=== PATIENT | female | born 1990 | race African-American/Black ===

== ENCOUNTER 2022-08-15 01:57 | Emergency (ER) | payer OTHER ==
--- OUTSIDE RECORDS SUMMARY | 2022-08-15 02:09 | XMS REPORT | Continuity of Care Document ---
:1990 Author Organization [facility] t Address [address] [place] [address] [address]. [address] [place] [address] Care Team Providers Name Role Phone Ashleigh EDDY, Neli Cooper Primary Care Physician [phone] AMANDO BOYD Attending Clinician Unavailable JERMAN ANDRADE Attending Clinician Unavailable Problems Condition Condition Condition Status Onset Resolution Last Treating Co mments Source Name Details Category Date Date Treatment Clinician Date Disease Active Met [facility]: [facility] 00 l Allergies, Adverse Reactions, Alerts This patient has no known allergies or adverse reactions. Social History Social Habit Start Date Stop Date Quantity Comments Source Alcohol intake 2021-01-06 2021-01-06 Current drinker [facility] 00:00:00 00:00:00 of [facility] (finding) Tobacco use and 2020-05-07 2020-05-07 Smokeless tobacco [facility]00 non-user Hospital Alcohol Comment 2020-05-07 2020-05-07 [facility] Sex Assigned At [birth year] [facility] Smoking Status Start Date Stop Date Source Never smoked tobacco [facility] Medications Ordered Filled Start Stop Current Ordering Indication Dosage Frequency Signature Comments Components Source Medication Medication Date Date Medication? Clinician (SIG) Name Name No known No No known [facility] medications 4-[address] 00:48: [facility] 50 l Procedures This patient has no known procedures. Plan of Care Planned Activity Planned Date Details Comments Source Future Scheduled 2022-08-15 COVID-[address] [facility] Test 02:09:35 (#1) [code = COVID-19 VACCINE (#1)] Future Scheduled 2022-08-15 Hepatitis C [facility] Test 02:09:35 screening (procedure) [code = 813599026] Future Scheduled 2022-08-15 Screening for [facility] Test 02:09:35 malignant neoplasm of cervix (procedure) [code = 706395153] Future Scheduled 2022-08-15 [facility]ACCINE [facility] 02:09:35 [code = INFLUENZA VACCINE] Future Scheduled 2022-08-15 [facility]IS B [facility] 02:09:35 VACCINES (1 of 3 - 3-dose series) [code = HEPATITIS B VACCINES (1 of 3 - 3-dose series)] Encounters Start End Encounter Admission Attending Care Care Encounter Source Date/Time Date/Time Type Type Clinicians Facility Department ID 2021-01-06 2021-01-06 Emergency [facility]IVER [facility] [id number] [facility] 00:00:00 00:00:00 AMANDO [address] 2020-05-07 2020-05-07 Emergency JERMAN ANDRADE [facility]4 [id number] [facility] 00:00:00 00:00:[address] Results This patient has no known results.
[2022-08-15] MEDS ORDERED: ASPIRIN 81 MG CHEWABLE TABLET ONE (02:38)
[2022-08-15] MEDS ORDERED: NA CHLORIDE 0.9% 1,000 ML ONE (02:38)
[2022-08-15 02:46] LABS: Urine Blood Negative (Negative); Urine Glucose Negative (Negative); Urine Protein Negative (Negative); Urine Specific Gravity 1.025 (1.005-1.030)
[2022-08-15 03:23] LABS: Urine Specific Gravity/Preg 1.025 (1.005-1.030)
[2022-08-15] MEDS ORDERED: CEFTRIAXONE 1000 MG/VIAL ONE (03:28)
[2022-08-15 03:34] LABS: Protime INR 1.11
[2022-08-15 03:35] LABS: Absolute Lymphocytes (CBC) 2.6 K/uL (0.7-4.9); Hematocrit 34.6 % (36.0-45.0); Lymphocytes % 22.7 % (15.3-44.8); MCV 66.4 fL (80-100); MPV 9.2 fL (7.6-11.3); RBC Red Blood Cell Count 5.21 M/uL (3.86-4.86)
[2022-08-15 03:48] LABS: ALT/SGPT 17 U/L (12-78); AST/SGOT 13 U/L (15-37); Albumin 3.4 g/dL (3.4-5.0); Alkaline Phosphatase 71 U/L (45-117); BUN Blood Urea Nitrogen 12 mg/dL (7-18); Bicarbonate 26 mmol/L (21-32); Bilirubin Total 0.3 mg/dL (0.2-1.0); Glomerular Filtration Rate 98 ml/min (=/>90); Glucose Level 96 mg/dL (74-106); Lipase 155 U/L (73-393); Magnesium 2.1 mg/dL (1.8-2.4); NT PRO-BNP 10 pg/mL (<125); Potassium 3.9 mmol/L (3.5-5.1); Protein, Total 8.3 g/dL (6.4-8.2); Sodium Level 137 mmol/L (136-145); Troponin High Sensitivity 4.5 pg/mL (<58.9)
[2022-08-15 03:49] LABS: Bilirubin Direct < 0.1 mg/dL (0-0.2)
[2022-08-15 04:26] LABS: Blood Morphology Comment NOTED (NOT SEEN); Platelet Estimate ADEQ
[2022-08-15 04:27] LABS: White Blood Cell Scan OK (OK)
--- NOTE | 2022-08-15 05:34 | EDPHYS ---
Physician Documentation [facility] Name: Heide Whitaker Age: 32 yrs Sex: Female : 1990 Arrival Date: 08/15/2022 Time: 02:02 Bed 18 Private MD: LETTY Physician Yogesh Thacker HPI: 08/15 02:21 This 32 yrs old Black Female presents to ER via Ambulatory with complaints of Chest bambi Pain, Numbness, - Legs. 02:21 This 32 yrs old Black Female presents to ER via Ambulatory with complaints of Chest bambi Pain, Numbness, - Legs. 02:21 The patient or guardian reports chest pain that is located primarily in the anterior bambi chest wall, right. The pain does not radiate. Associated signs and symptoms: The patient has no apparent associated signs or symptoms. The chest pain is described as a pressure. Duration: The patient or guardian reports a single episode, that is still ongoing, but improving. Modifying factors: The symptoms are alleviated by nothing. the symptoms are aggravated by nothing. Severity of pain: At its worst the pain was mild in the emergency department the pain is unchanged. 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 - Social history:: Smoking status: Patient denies any tobacco usage or history of. - Family history:: not pertinent. ROS: 02:21 Constitutional: Negative for fever, chills, and weight loss, Eyes: Negative for injury, bambi pain, redness, and discharge, ENT: Negative for injury, pain, and discharge, Neck: Negative for injury, pain, and swelling, Respiratory: Negative for shortness of breath, cough, wheezing, and pleuritic chest pain, Abdomen/GI: Negative for abdominal pain, nausea, vomiting, diarrhea, and constipation, Back: Negative for injury and pain, : Negative for injury, bleeding, discharge, and swelling, MS/Extremity: Negative for injury and deformity, Skin: Negative for injury, rash, and discoloration, Neuro: Negative for headache, weakness, numbness, tingling, and seizure, Psych: Negative for depression, anxiety, suicide ideation, homicidal ideation, and hallucinations, Allergy/Immunology: Negative for hives, rash, and allergies, Endocrine: Negative for neck swelling, polydipsia, polyuria, polyphagia, and marked weight changes, Hematologic/Lymphatic: Negative for swollen nodes, abnormal bleeding, and unusual bruising. 02:21 Cardiovascular: Positive for chest pain. Exam: 02:21 Constitutional: This is a well developed, well nourished patient who is awake, alert, bambi and in no acute distress. Head/Face: Normocephalic, atraumatic. Eyes: Pupils equal round and reactive to light, extra-ocular motions intact. Lids and lashes normal. Conjunctiva and sclera are non-icteric and not injected. Cornea within normal limits. Periorbital areas with no swelling, redness, or edema. ENT: Nares patent. No nasal discharge, no septal abnormalities noted. Tympanic membranes are normal and external auditory canals are clear. Oropharynx with no redness, swelling, or masses, exudates, or evidence of obstruction, uvula midline. Mucous membranes moist. Neck: Trachea midline, no thyromegaly or masses palpated, and no cervical lymphadenopathy. Supple, full range of motion without nuchal rigidity, or vertebral point tenderness. No Meningismus. Chest/axilla: Normal chest wall appearance and motion. Nontender with no deformity. No lesions are appreciated. Cardiovascular: Regular rate and rhythm with a normal S1 and S2. No gallops, murmurs, or rubs. Normal PMI, no JVD. No pulse deficits. Respiratory: Lungs have equal breath sounds bilaterally, clear to auscultation and percussion. No rales, rhonchi or wheezes noted. No increased work of breathing, no retractions or nasal flaring. Abdomen/GI: Soft, non-tender, with normal bowel sounds. No distension or tympany. No guarding or rebound. No evidence of tenderness throughout. Back: No spinal tenderness. No costovertebral tenderness. Full range of motion. Skin: Warm, dry with normal turgor. Normal color with no rashes, no lesions, and no evidence of cellulitis. MS/ Extremity: Pulses equal, no cyanosis. Neurovascular intact. Full, normal range of motion. Neuro: Awake and alert, GCS 15, oriented to person, place, time, and situation. Cranial nerves II-XII grossly intact. Motor strength 5/5 in all extremities. Sensory grossly intact. Cerebellar exam normal. Normal gait. Psych: Awake, alert, with orientation to person, place and time. Behavior, mood, and affect are within normal limits. 02:21 Musculoskeletal/extremity: DVT Exam: No signs of deep vein thrombosis. no pain, no swelling, no tenderness, negative Homans' sign noted on exam, no appreciated bluish discoloration, no erythema, no increased warmth. 02:28 ECG was reviewed by the Attending Physician. [facility] Vital Signs: 02:06 BP 133 / 77; Pulse 89; Resp 20; Temp 97.9; Pulse Ox 100% ; Weight 158.76 kg; Height 5 jj7 ft. 7 in. (170.18 cm); Pain 6/10; 03:29 BP 141 / 91; Pulse 82; Resp 20; Pulse Ox 98% ; jj7 04:37 BP 145 / 89; Pulse 80; Resp 19; Pulse Ox 98% ; jj7 05:30 BP 145 / 89; Pulse 80; Resp 17; Pulse Ox 99% ; Pain 0/10; jj7 06:43 BP 145 / 95; Pulse 82; Resp 17; Pulse Ox 99% ; Pain 0/10; jj7 02:06 Body Mass Index 54.82 (158.76 kg, 170.18 cm) 7 MDM: 02:08 Patient medically screened. [facility] 02:23 Differential diagnosis: abnormal EKG, anxiety, coronary artery disease cholecystitis, bambi Cholelithiasis gastroesophageal reflux disease (GERD), hiatal hernia, pancreatitis, pulmonary embolus, stable angina, unstable angina. HEART Score: History: Slightly Suspicious (0), ECG: Normal (0), Age: < or = 45 years (0), Risk Factors: 1 or 2 risk factors (1), [Obesity] Troponin: < or = 1 x Normal Limit (0). The patient's deep vein thrombosis risk score was calculated as follows: Total Score: 0. This patient was found to be at low risk for a deep vein thrombosis by using the Well's assessment criteria. The patient's pulmonary embolism risk score was calculated as follows: Total Score: 0-2 points. This patient was found to be at low risk for a pulmonary embolism by using the Well's assessment criteria. REGINA Risk Score: TOTAL SCORE = 0. Data reviewed: vital signs, nurses notes, lab test result(s), EKG, radiologic studies, CT scan, plain films. Data interpreted: monitoring tech: rate is 89 beats/min, rhythm is regular, Pulse oximetry: on room air is 100 %. Test interpretation: by ED physician or midlevel provider: ECG, plain radiologic studies. Counseling: I had a detailed discussion with the patient and/or guardian regarding: the historical points, exam findings, and any diagnostic results supporting the discharge/admit diagnosis, lab results, radiology results. 08/15 02:21 Order name: Basic Metabolic Panel; Complete Time: 04:45 [facility] 08/15 02:21 Order name: CBC with Diff; Complete Time: 04:45 [facility] 08/15 02:21 Order name: LFT's; Complete Time: 04:45 [facility] 08/15 02:21 Order name: Magnesium; Complete Time: 04:45 [facility] 08/15 02:21 Order name: NT PRO-BNP; Complete Time: 04:45 [facility] 08/15 02:21 Order name: PT-INR; Complete Time: 03:34 [facility] 08/15 02:21 Order name: Troponin HS; Complete Time: 04:45 [facility] 08/15 02:21 Order name: XRAY Chest (1 view) [facility] 08/15 02:21 Order name: Lipase; Complete Time: 04:45 [facility] 08/15 02:47 Order name: Urine Dipstick-Ancillary; Complete Time: 03:34 EDMS 08/15 02:52 Order name: Urine Culture [facility] 08/15 02:55 Order name: Troponin High Sensitivity: 430am; Complete Time: 05:44 [facility] 08/15 03:09 Order name: Urine --Ancillary (enter results); Complete Time: 03:34 08/15 03:41 Order name: CBC Smear Scan; Complete Time: 04:45 EDMS 08/15 02:21 Order name: EKG; Complete Time: 02:22 bambi 08/15 02:21 Order name: Cardiac monitoring; Complete Time: 03:18 bambi 08/15 02:21 Order name: EKG - Nurse/Tech; Complete Time: 02:23 bambi 08/15 02:21 Order name: IV Saline Lock; Complete Time: 03:18 bambi 08/15 02:21 Order name: Labs collected and sent; Complete Time: 03:18 [facility] 08/15 02:21 Order name: O2 Per Protocol; Complete Time: 03:18 [facility] 08/15 02:21 Order name: O2 Sat Monitoring; Complete Time: 03:18 [facility] 08/15 02:21 Order name: Urine Dipstick-Ancillary (obtain specimen) [facility] 08/15 02:21 Order name: Urine Test (obtain specimen) [facility] 08/15 02:21 Order name: CT Chest For PE Angio bambi EC: Rate is 81 beats/min. Rhythm is regular. QRS [place] is Normal. MT interval is prolonged [facility] at 262 msec. QRS interval is normal. QT interval is normal. No Q waves. T waves are Normal. No ST changes noted. Clinical impression: NSR w/ Non-specific ST/T Changes, 1st degree heart block, and No evidence of ischemia. Interpreted by me. Reviewed by me. Administered Medications: 02:49 Drug: NS 0.9% 1000 ml Route: IV; Rate: 1 bolus; Site: right antecubital; j7 02:49 Drug: Aspirin Chewable Tablet 162 mg Route: PO; j7 03:33 Follow up: Response: No adverse reaction j7 03:33 Drug: Rocephin (cefTRIAXone) 1 grams Route: IV; Rate: per protocol; Site: right j7 antecubital; Disposition Summary: 08/15/22 05:33 Discharge Ordered Location: Home [facility] Problem: new bambi Symptoms: have improved bambi Condition: Fair bambi Diagnosis - Chest pain, unspecified bambi - UTI/ Urinary tract infection, site not specified bambi Followup: bambi - With: Private Physician - When: 2 - 3 days - Reason: Recheck today's complaints, Continuance of care, Re-evaluation by your physician Followup: bambi - With: - When: 2 - 3 days - Reason: Recheck today's complaints, Re-evaluation by your physician Discharge Instructions: - Discharge Summary Sheet bambi - Nonspecific Chest Pain, Adult bambi - Nonspecific Chest Pain, Adult, [id number] bambi - Aspirin and Your Heart bambi - Urinary Tract Infection, Adult bambi Forms: - Medication Reconciliation Form bambi - Thank You Letter bambi - Antibiotic Education bambi - Prescription Opioid Use bambi Prescriptions: - Cipro 250 mg Oral Tablet - take 1 tablet by ORAL route every 12 hours; 14 tablet; Refills: 0, Product bambi Selection Permitted - Pepcid 20 mg Oral Tablet - take 1 tablet by ORAL route every 12 hours for 10 days; 20 tablet; Refills: 0, bambi Product Selection Permitted Signatures: Dispatcher [employer] Yogesh Bass MD MD cha Johnson, Juwairiyah, RN RN jj7
--- NOTE | 2022-08-15 05:34 | ER ---
Nurse's Notes [facility] Name: Heide Whitaker Age: 32 yrs Sex: Female : 1990 Arrival Date: 08/15/2022 Time: 02:02 Bed 18 Private MD: Diagnosis: Chest pain, unspecified;UTI/ Urinary tract infection, site not specified Presentation: 08/15 02:06 Chief complaint: Patient states: PT STATES SHE HAS HAVING A DULL CP WHILE SHE WAS jj7 EATING BUT DIDN'T THINK MUCH ABOUT IT. STATES SHE WENT TO SLEEP AND WAS AWAKEN BY HER CP. DENIES ANY OTHER SYMPTOMS. NO N/V. Ebola Screen: No symptoms or risks identified at this time. Initial Sepsis Screen: Does the patient meet any 2 criteria? No. Patient's initial sepsis screen is negative. Does the patient have a suspected source of infection? No. Patient's initial sepsis screen is negative. Risk Assessment: Do you want to hurt yourself or someone else? Patient reports no desire to harm self or others. Onset of symptoms was August 15, 2022. 02:06 Method Of Arrival: Ambulatory [facility] 02:06 Acuity: MALLORIE 3 jj7 02:06 Coronavirus screen: At this time, the client does not indicate any symptoms associated j with coronavirus-19. Triage Assessment: 02:19 General: Appears in no apparent distress. comfortable, obese, Behavior is calm, jj7 cooperative, appropriate for age. Pain: Complains of pain in anterior aspect of right upper chest. Cardiovascular: Reports chest pain. 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 - Social history:: Smoking status: Patient denies any tobacco usage or history of. - Family history:: not pertinent. Screenin:21 Abuse screen: Denies threats or abuse. Nutritional screening: No deficits noted. jj7 Tuberculosis screening: No symptoms or risk factors identified. Fall Risk None identified. Assessment: 02:21 Reassessment: SEE TRIAGE ASSESSMENT. Pain: Pain does not radiate. Pain began 1 hour ago.jj7 Vital Signs: 02:06 BP 133 / 77; Pulse 89; Resp 20; Temp 97.9; Pulse Ox 100% ; Weight 158.76 kg; Height 5 jj7 ft. 7 in. (170.18 cm); Pain 6/10; 03:29 BP 141 / 91; Pulse 82; Resp 20; Pulse Ox 98% ; jj7 04:37 BP 145 / 89; Pulse 80; Resp 19; Pulse Ox 98% ; jj7 05:30 BP 145 / 89; Pulse 80; Resp 17; Pulse Ox 99% ; Pain 0/10; jj7 06:43 BP 145 / 95; Pulse 82; Resp 17; Pulse Ox 99% ; Pain 0/10; jj7 02:06 Body Mass Index 54.82 (158.76 kg, 170.18 cm) jj7 ED Course: 02:02 Patient arrived in ED. bp1 02:07 Alec Cummings RN is Primary Nurse. jj7 02:08 Yogesh Thacker MD is Attending Physician. bambi 02:19 Triage completed. jj7 02:19 Arm band placed on right wrist. Patient placed in an exam room, on a stretcher, on jj7 ekg monitor. 02:21 Patient has correct armband on for positive identification. Placed in gown. Bed in low jj7 position. Call light in reach. Client placed on continuous cardiac and pulse oximetry monitoring. NIBP monitoring applied. 02:37 XRAY Chest (1 view) In Process Unspecified. EDMS 02:47 Inserted saline lock: 20 gauge in right antecubital area, using aseptic technique. jj7 03:18 Basic Metabolic Panel Sent. jj7 03:18 CBC with Diff Sent. jj7 03:18 LFT's Sent. jj7 03:18 Magnesium Sent. jj7 03:18 NT PRO-BNP Sent. jj7 03:18 PT-INR Sent. jj7 03:18 Troponin HS Sent. jj7 03:20 Troponin High Sensitivity: 430am Sent. jj7 04:22 CT Chest For PE Angio In Process Unspecified. EDMS 05:33 Russell Singletary MD is Referral Physician. bambi 06:44 No provider procedures requiring assistance completed. IV discontinued, intact, jj7 bleeding controlled, No redness/swelling at site. Pressure dressing applied. Patient maintains SpO2 saturation greater than 95% on room air. Administered Medications: 02:49 Drug: NS 0.9% 1000 ml Route: IV; Rate: 1 bolus; Site: right antecubital; jj7 02:49 Drug: Aspirin Chewable Tablet 162 mg Route: PO; jj7 03:33 Follow up: Response: No adverse reaction jj7 03:33 Drug: Rocephin (cefTRIAXone) 1 grams Route: IV; Rate: per protocol; Site: right jj7 antecubital; Medication: 02:21 VIS not applicable for this client. jj7 Outcome: 05:33 Discharge ordered by MD. lacy 06:44 Discharged to home ambulatory. jj7 06:44 Condition: improved 06:44 Discharge instructions given to patient, Instructed on discharge instructions, follow up and referral plans. medication usage, Demonstrated understanding of instructions, follow-up care, medications, Prescriptions given X 2. 06:49 Patient left the ED. jj7 Signatures: Dispatcher [employer] EDMS Yogesh Thacker MD MD cha [place]ia[place], Brittany bp1 Johnson, Juwairiyah, RN RN jj7 Corrections: (The following items were deleted from the chart) 05:01 03:39 BP 145 / 89; Pulse 80bpm; Resp 19bpm; Pulse Ox 98%; jj7 jj7
[2022-08-15 07:01] VITALS: TEMP 97.9
[2022-08-15 07:18] VITALS: BP 145/95; O2SAT 99
--- NOTE | 2022-08-15 16:56 | RAD REPORT ---
EXAM DESCRIPTION: RAD - Chest Single View - 08/15/2022 2:36 am CLINICAL HISTORY: 2 years Female, CHEST PAIN COMPARISON: None FINDINGS: No focal lung consolidation. No pleural effusion. No pneumothorax. Cardiomediastinal silhouette is within normal limits. No acute osseous abnormality. IMPRESSION: No acute cardiopulmonary disease. Electronically signed by: Aneesh Dumont DO 08/15/2022 2:53 AM UNIT COORDINATOR Due to temporary technical issues with the PACS/Fluency reporting system, reports are being signed by the in house radiologists without review as a courtesy to insure prompt reporting. The interpreting radiologist is fully responsible for the content of the report.
--- NOTE | 2022-08-15 17:03 | RAD REPORT ---
EXAM DESCRIPTION: CT - Chest For Pe Angio - 08/15/2022 7:14 am CLINICAL HISTORY: The patient is 32 years old and is Female; cp TECHNIQUE: Axial computed tomographic angiography images of the chest with intravenous contrast. S agittal and coronal reformatted images were created and reviewed. This CT exam was performed using one or more of the following dose reduction techniques: automated exposure control, adjustment of t he mA and/or kV according to patient size, and/or use of iterative reconstruction technique. MIP re constructed images were created and reviewed. COMPARISON: No relevant prior studies available. FINDINGS: Pulmonary arteries: No PE identified. Aorta: No acute findings. No thoracic aortic aneurysm. Lungs: No pulmonary consolidation or groundglass opacities to suggest pneumonia. Pleural space: Unremarkable. No significant effusion. No pneumothorax. Heart: Unremarkable. No cardiomegaly. No significant pericardial effusion. No evidence of R V dysfunction. Bones/joints: No acute fracture. No dislocation. Soft tissues: Unremarkable. Lymph nodes: Unremarkable. No enlarged lymph nodes. Gallbladder and bile ducts: Cholecystectomy without biliary dilatation. Intraperitoneal space: No retrosternal hemorrhage. No pneumoperitoneum. IMPRESSION: No PE identified. Electronically signed by: Deja Vaughan MD 08/15/2022 4:54 AM LEARNING DISABILITIES SPECIALIST Due to temporary technical issues with the PACS/Fluency reporting system, reports are being signed by the in house radiologists without Review as a courtesy to insure prompt reporting. The interpreting radiologist is fully responsible for the content of the report.
--- NOTE | 2022-08-16 07:55 | EKG ---
Test Date: 2022-08-15 Test Time: 02:21:08 Marble Cleaner: NICK MEASUREMENT RESULTS: Intervals: Rate: 81 LA: 262 QRSD: 88 QT: 360 QTc: 418 [place]: P: 64 LA: 262 QRS: 15 T: 36 INTERPRETIVE STATEMENTS: Sinus rhythm with 1st degree AV block Otherwise normal ECG Compared to ECG 07/24/2009 07:46:04 Sinus tachycardia no longer present Electronically Signed On 08-16-22 07:49:23 INDUSTRIAL RELATIONS DIRECTOR by Russell Singletary
== END 2022-08-15 06:49 | disposition home or self-care (01) ==
LOC: ER 01:57
DX: R07.89 Other chest pain (principal); N39.0 Urinary tract infection, site not specified
CPT/HCPCS: 93005; 87088; 85025; 87086; 80048; 36415; 83735; 81025; 85610; 80076; 81003; 84484 ×2; 83690; 83880; 71275; 71045; 96374; 99284; Q9967; J7030

== ENCOUNTER 2023-02-22 23:13 | Emergency (ER) | payer OTHER ==
--- OUTSIDE RECORDS SUMMARY | 2023-02-22 23:15 | XMS REPORT | Continuity of Care Document ---
:1990 Author Organization [facility] t Address [address]. [address] [place] [address] Care Team Providers Name Role Phone Ashleigh EDDY, Neli Cooper Primary Care Physician [phone] AMANDO BOYD Attending Clinician Unavailable JERMAN ANDRADE [...] Start Date Stop Date Quantity Comments Source [facility] Alcohol intake 2021-01-06 2021-01-06 Current drinker [facility]00 00:[facility]:[address] [facility] Hospital (finding) History of Social 2021-01-06 2021-01-[address] function 00:00:00 00:00:00 Hospital Tobacco use and 2020-05-07 2020-05-07 [facility]-user Hospital Alcohol Comment 2020-05-07 2020-05-07 [facility] Sex Assigned At [birth year] [facility] Smoking Status Start Date Stop Date Source Never smoked tobacco [facility] Medications Ordered Filled Start Stop Current Ordering Indication Dosage Frequency Signature Comments Components Source Medication Medication Date Date Medication? Clinician (SIG) Name Name No known No No known [facility] [facility] No known No No known [facility] [facility] Procedures This patient has no known procedures. Plan of Care Planned Activity Planned Date Details Comments Source Future Scheduled 2022-12-14 COVID-19 VACCINE [facility] Test 12:49:50 (#1) [code = COVID-19 VACCINE (#1)] Future Scheduled 2022-12-14 [facility] Test 12:49:50 screening (procedure) [code = 342994250] Future Scheduled 2022-12-14 Screening for [facility] Test 12:49:50 malignant neoplasm of cervix (procedure) [code = 471938438] Future Scheduled 2022-12-14 INFLUENZA VACCINE [facility] Test 12:49:50 [code = INFLUENZA VACCINE] Future Scheduled 2022-09-07 COVID-19 VACCINE [facility] Test 15:01:05 (#1) [code = COVID-19 VACCINE (#1)] Future Scheduled 2022-09-07 [facility] Test 15:01:05 screening (procedure) [code = 171779924] Future Scheduled 2022-09-07 [facility] Test 15:01:05 malignant neoplasm of cervix (procedure) [code = 210099576] Future Scheduled 2022-09-07 [facility]ACCINE [facility] 15:01:05 [code = INFLUENZA VACCINE] Future Scheduled 2022-08-15 HEPATITIS B [facility] Test 02:09:35 VACCINES (1 of 3 - 3-dose series) [code = HEPATITIS B VACCINES (1 of 3 - 3-dose series)] Future Scheduled 2022-08-15 COVID-19 [facility]ACCINE [facility] Test 02:09:35 (#1) [code = COVID-19 VACCINE (#1)] Future Scheduled 2022-08-15 [facility] Test 02:09:35 screening (procedure) [code = 617742688] Future Scheduled 2022-08-15 [facility] Test 02:09:35 malignant neoplasm of cervix (procedure) [code = 207387232] Future Scheduled 2022-08-15 [facility]ACCINE [facility] 02:09:35 [code = INFLUENZA VACCINE] Encounters Start End Encounter Admission Attending Care Care Encounter Source Date/Time Date/Time Type Type Clinicians Facility Department ID 2021-01-06 2021-01-06 Emergency [place], [place] [address] [id number] [place] 00:00:00 00:00:00 AMANDO [address] 2020-05-07 2020-05-07 Emergency JERMAN ANDRADE [facility] [id number] [place] 00:00:00 00:00:[address] Results This patient has no known results.
[2023-02-22] MEDS ORDERED: KETOROLAC 30 MG/ML INJ ONE (23:58)
--- NOTE | 2023-02-23 00:05 | EDPHYS ---
Physician Documentation [facility] Name: Heide Whitaker Age: 33 yrs Sex: Female : 1990 Arrival Date: 02/22/2023 Time: 23:13 Bed 18 Private MD: ED Physician Unruly Sands HPI: 02/22 23:51 This 33 yrs old Black Female presents to ER via Ambulatory with complaints of Neck bs3 Pain, <24hrs Old, Left Sided pain. 23:51 33-year-old female history of obesity presents with left-sided neck pain she notes the bs3 pain is worse with movements that started when she woke up this morning and felt like she slept wrong however progressed throughout the day and therefore she was concerned and came in and it seems to radiate to her left shoulder and the back of her head she denies any associated numbness tingling or weakness she denies any chest pain or shortness of breath is not a ripping or tearing pain at the achy pain she has no pain rating to her lower back or anywhere else. 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 - Social history:: Smoking status: Patient denies any tobacco usage or history of. Patient uses alcohol, only on a social basis. Patient/guardian denies using street drugs. ROS: 23:51 Constitutional: Negative for fever, chills bs3 23:51 All other systems are negative. Exam: 23:51 Constitutional: This is a well developed, well nourished patient who is awake, alert, bs3 and in no acute distress. Head/Face: Normocephalic, atraumatic. Eyes: Pupils equal round and reactive to light, extra-ocular motions intact. Lids and lashes normal. ENT: mmm, no posterior phyarngeal erythema Neck: She has been paraspinal pain to palpation for the posterior left side of her neck particularly along the trapezius muscles she has no midline pain to palpation negative Spurling Chest/axilla: Normal chest wall appearance and motion. Nontender with no deformity. No lesions are appreciated. Cardiovascular: Regular rate and rhythm with a normal S1 and S2. symmetric pulses in upper extremities Respiratory: Lungs have equal breath sounds bilaterally, clear to auscultation, no respiratory distress Abdomen/GI: Soft, non-tender, no rebound or guarding Back: No spinal tenderness. No costovertebral tenderness. Full range of motion. MS/ Extremity: Pulses equal, no cyanosis. Neurovascular intact. Full, normal range of motion. 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 Cranial nerves II-XII grossly intact. Motor strength 5/5 in all extremities. Sensory grossly intact. Psych: Awake, alert, with orientation to person, place and time. Behavior, mood, and affect are within normal limits. Vital Signs: 23:22 BP 152 / 78; Pulse 85; Resp 18; Temp 97.9; Pulse Ox 98% on R/A; Weight 163.29 kg; pf1 Height 5 ft. 8 in. ; Pain 02/22; 23:44 BP 121 / 74; Pulse 75; Resp 18; Pulse Ox 100% ; kl 02/23 00:17 BP 118 / 75; Pulse 82; Resp 18; Pulse Ox 100% on R/A; kl 02/22 23:22 Body Mass Index 54.74 (163.29 kg, 172.72 cm) pf1 02/22 23:22 Pain Scale: Adult pf1 MDM: 02/22 23:18 Patient medically screened. bs3 23:51 Data reviewed: vital signs, nurses notes. ED course: 33-year-old with nontraumatic neck bs3 pain her history and physical are consistent with a musculoskeletal etiology I considered a vertebral artery dissection, aortic dissection however her neurologic exam is normal and she is has had no neurodeficits her pain is particularly aligning with her trapezius muscle we will treat pain advised NSAID muscle relaxant and return precautions we will get a screening EKG her vital signs here are normal. 02/23 00:02 ED course: EKG is normal sinus rhythm at [address] elevation or depression QTc 452 as bs3 interpreted by myself. 02/22 23:51 Order name: EKG - Nurse/Tech; Complete Time: 00:03 bs3 Administered Medications: 00:03 Drug: Ketorolac IM 30 mg Route: IM; Site: left deltoid; kl 00:15 Follow up: Response: No adverse reaction; Pain is decreased kl Disposition Summary: 02/23/23 00:03 Discharge Ordered Location: Home bs3 Problem: new bs3 Symptoms: have improved bs3 Condition: Stable bs3 Diagnosis - Sprain of ligaments of cervical spine bs3 Followup: bs3 - With: Private Physician - When: 1 week - Reason: Re-evaluation by your physician Discharge Instructions: - Discharge Summary Sheet bs3 - Neck Contusion, [id number] bs3 - Cervical Strain and Sprain Rehab-SportsMed bs3 Forms: - Medication Reconciliation Form bs3 - Thank You Letter bs3 - Antibiotic Education bs3 - Prescription Opioid Use bs3 Prescriptions: - meloxicam 15 mg Oral tablet - take 1 tablet by ORAL route daily for 14 days; 14 tablet; Refills: 0, Product bs3 Selection Permitted - Cyclobenzaprine 10 mg Oral Tablet - take 1 tablet by ORAL route every 8 hours As needed; 15 tablet; Refills: 0, bs3 Product Selection Permitted Signatures: Jessica Wheeler RN RN Unruly Rod MD MD bs3 Katja Parker RN RN pf1
--- NOTE | 2023-02-23 00:05 | ER ---
Nurse's Notes [facility] Name: Heide Whitaker Age: 33 yrs Sex: Female : 1990 Arrival Date: 02/22/2023 Time: 23:13 Bed 18 Private MD: Diagnosis: Sprain of ligaments of cervical spine Presentation: 02/22 23:22 Chief complaint: Patient states: left side headache pain of 6 and left side neck pf1 pain,onset 0700 AM. Patient denies any injury. Patient stated "I thought at first I slept wrong." Patient stated pain progressed throughout the day. Patient stated took Ibuprofen 800mg at 2200 tonight. Coronavirus screen: Vaccine status: Patient reports receiving the 2nd dose of the covid vaccine. [employer]. Ebola Screen: Patient negative for fever greater than or equal to 101.5 degrees Fahrenheit, and additional compatible Ebola Virus Disease symptoms. Initial Sepsis Screen: Does the patient meet any 2 criteria? No. Patient's initial sepsis screen is negative. Does the patient have a suspected source of infection? No. Patient's initial sepsis screen is negative. Risk Assessment: Do you want to hurt yourself or someone else? Patient reports no desire to harm self or others. 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 - Social history:: Smoking status: Patient denies any tobacco usage or history of. Patient uses alcohol, only on a social basis. Patient/guardian denies using street drugs. Screenin:44 [facility] ED Fall Risk Assessment (Adult) History of falling in the last 3 months, kl including since admission No falls in past 3 months (0 pts) Confusion or Disorientation No (0 pts) Intoxicated or Sedated No (0 pts) Impaired Gait No (0 pts) Mobility Assist Device Used No (0 pt) Altered Elimination No (0 pt) Score/Fall Risk Level 0 - 2 = Low Risk Oriented to surroundings, Maintained a safe environment. Abuse screen: Denies threats or abuse. Nutritional screening: No deficits noted. Tuberculosis screening: No symptoms or risk factors identified. Assessment: 23:42 General: Appears uncomfortable, Behavior is calm, cooperative. Pain: Complains of pain kl in left neck and left arm pain left side of head reports thought she slept wrong or she was having a migraine headache Pain currently is 7 out of 10 on a pain scale. Neuro: Level of Consciousness is awake, alert, obeys commands, Oriented to person, place, time, situation, Severity Of Illness Coordinator are equal bilaterally Moves all extremities. Full function Gait is steady, Speech is normal, Facial symmetry appears normal, Pupils are PERRLA. Cardiovascular: No deficits noted. Respiratory: No deficits noted. GI: No deficits noted. No signs and/or symptoms were reported involving the gastrointestinal system. : No deficits noted. No signs and/or symptoms were reported regarding the genitourinary system. EENT: No deficits noted. No signs and/or symptoms were reported regarding the EENT system. Derm: No deficits noted. No signs and/or symptoms reported regarding the dermatologic system. Musculoskeletal: Reports pain in left arm. Vital Signs: 23:22 BP 152 / 78; Pulse 85; Resp 18; Temp 97.9; Pulse Ox 98% on R/A; Weight 163.29 kg; pf1 Height 5 ft. 8 in. ; Pain /; 23:44 BP 121 / 74; Pulse 75; Resp 18; Pulse Ox 100% ; kl 02/23 00:17 BP 118 / 75; Pulse 82; Resp 18; Pulse Ox 100% on R/A; kl 02/22 23:22 Body Mass Index 54.74 (163.29 kg, 172.72 cm) pf1 02/22 23:22 Pain Scale: Adult pf1 ED Course: 02/22 23:18 Patient arrived in ED. bp1 23:18 Unruly Sands MD is Attending Physician. bs3 23:26 Triage completed. pf1 23:44 Patient has correct armband on for positive identification. Bed in low position. Call kl light in reach. Side rails up X 1. Pulse ox on. NIBP on. Door closed. Noise minimized. Warm blanket given. 02/23 00:15 No provider procedures requiring assistance completed. Patient did not have IV access kl during this emergency room visit. Administered Medications: 00:03 Drug: Ketorolac IM 30 mg Route: IM; Site: left deltoid; 00:15 Follow up: Response: No adverse reaction; Pain is decreased Medication: 02/22 23:43 VIS not applicable for this client. Outcome: 02/23 00:03 Discharge ordered by . bs3 00:18 Patient left the ED. Signatures: Jessica Wheeler RN RN Skye Walls Brandon, MD MD bs3 Katja Parker RN RN pf1
[2023-02-23 00:43] VITALS: TEMP 97.9
[2023-02-23 00:44] VITALS: O2SAT 100
[2023-02-23 00:45] VITALS: BP 118/75
--- NOTE | 2023-02-24 12:06 | EKG ---
Test Date: 2023-02-22 Test Time: 23:58:48 Score Caller: JEOVANNY MEASUREMENT RESULTS: Intervals: Rate: 85 UT: 262 QRSD: 86 QT: 380 QTc: 452 [place]: P: 54 UT: 262 QRS: 8 T: 32 INTERPRETIVE STATEMENTS: Sinus rhythm with 1st degree AV block Otherwise normal ECG Compared to ECG 08/15/2022 02:21:08 No significant changes Electronically Signed On 02-24-23 12:00:50 CDT by Russell Singletary
== END 2023-02-23 00:18 | disposition home or self-care (01) ==
LOC: ER 23:13
DX: S13.4XXA Sprain of ligaments of cervical spine, initial encounter (principal)
CPT/HCPCS: 93005; 96372; 99284

== ENCOUNTER 2023-04-18 00:53 | Emergency (ER) | payer OTHER ==
--- OUTSIDE RECORDS SUMMARY | 2023-04-18 00:57 | XMS REPORT | Continuity of Care Document ---
:1990 Author Organization [facility] t Address [address]. [address] [place] [address] Care Team Providers Name Role Phone Ashleigh EDDY, Neli Cooper Primary Care Physician [phone] AMNADO BOYD Attending Clinician Unavailable JERMAN ANDRADE Attending [...] [facility] Alcohol intake 2021-01-06 2021-01-06 Current drinker [facility] 00:00:00 00:00:00 of alcohol Hospital (finding) History of Social 2021-01-06 2021-01-[address] function 00:00:00 00:00:00 Hospital Tobacco use and 2020-05-07 2020-05-07 Smokeless [facility] tobacco non-user Hospital Alcohol Comment 2020-05-07 2020-05-07 socially [facility] Sex Assigned At [birth year] [facility] Smoking Status Start Date Stop Date Source Never smoked tobacco [facility] Medications Ordered Filled Start Stop Current Ordering Indication Dosage Frequency Signature Comments Components Source Medication Medication Date Date Medication? Clinician (SIG) Name Name No known No No known [facility] [address] [facility] No known No No known [facility] 4-[address] [facility] Procedures This patient has no known procedures. Plan of Care Planned Activity Planned Date Details Comments Source Future Scheduled 2023-03-01 [facility] Test 04:35:09 (#1) [code = COVID-19 VACCINE (#1)] Future Scheduled 2023-03-01 [facility] 04:35:09 screening (procedure) [code = 051134036] Future Scheduled 2023-03-01 [facility] Test 04:35:09 malignant neoplasm of cervix (procedure) [code = 547790492] Future Scheduled 2023-03-01 INFLUENZA VACCINE [facility] 04:35:09 [code = INFLUENZA VACCINE] Future Scheduled 2022-12-14 COVID-[address] [facility] Test 12:49:50 (#1) [code = COVID-19 VACCINE (#1)] Future Scheduled 2022-12-14 [facility] 12:49:50 screening (procedure) [code = 591123491] Future Scheduled 2022-12-14 [facility] Test 12:49:50 malignant neoplasm of cervix (procedure) [code = 805546403] Future Scheduled 2022-12-14 [facility]ACCINE [facility] 12:49:50 [code = INFLUENZA VACCINE] Future Scheduled 2022-09-07 COVID-[address] [facility] Test 15:01:05 (#1) [code = COVID-19 VACCINE (#1)] Future Scheduled 2022-09-07 [facility] 15:01:05 screening (procedure) [code = 362858728] Future Scheduled 2022-09-07 [facility] Test 15:01:05 malignant neoplasm of cervix (procedure) [code = 226820234] Future Scheduled 2022-09-07 [facility]ACCINE [facility] 15:01:05 [code = INFLUENZA VACCINE] Future Scheduled 2022-08-15 [facility] 02:09:35 VACCINES (1 of 3 - 3-dose series) [code = HEPATITIS B VACCINES (1 of 3 - 3-dose series)] Future Scheduled 2022-08-15 [facility] 02:09:35 (#1) [code = COVID-19 VACCINE (#1)] Future Scheduled 2022-08-15 [facility] 02:09:35 screening (procedure) [code = 141102608] Future Scheduled 2022-08-15 [facility] Test 02:09:35 malignant neoplasm of cervix (procedure) [code = 555003360] Future Scheduled 2022-08-15 [facility]ACCINE [facility] Test 02:09:35 [code = INFLUENZA VACCINE] Encounters Start End Encounter Admission Attending Care Care Encounter Source Date/Time Date/Time Type Type Clinicians Facility Department ID 2021-01-06 2021-01-06 Emergency [place], [place] [id number] [place] 00:00:00 00:00:00 AMANDO [address] 2020-05-07 2020-05-07 Emergency JERMAN ANDRADE [place] [id number] [place] 00:00:00 00:00:[address] Results This patient has no known results.
[2023-04-18 01:34] LABS: Absolute Lymphocytes (CBC) 2.7 K/uL (0.7-4.9); Hematocrit 31.2 % (36.0-45.0); Lymphocytes % 21.2 % (15.3-44.8); MCV 66.8 fL (80-100); MPV 8.3 fL (7.6-11.3); RBC Red Blood Cell Count 4.68 M/uL (3.86-4.86)
[2023-04-18] MEDS ORDERED: ASPIRIN 81 MG CHEWABLE TABLET ONE (01:42)
[2023-04-18 01:43] LABS: Protime INR 1.13
[2023-04-18 01:52] LABS: ALT/SGPT 15 U/L (13-56); AST/SGOT 14 U/L (15-37); Albumin 3.1 g/dL (3.4-5.0); Alkaline Phosphatase 70 U/L (45-117); BUN Blood Urea Nitrogen 14 mg/dL (7-18); Bicarbonate 27 mEq/L (21-32); Bilirubin Total 0.2 mg/dL (0.2-1.0); Glomerular Filtration Rate 95 ml/min (=/>90); Glucose Level 98 mg/dL (74-106); Lipase 26 U/L (13-75); Magnesium 1.9 mg/dL (1.6-2.4); NT PRO-BNP 10 pg/mL (<125); Potassium 3.6 mEq/L (3.5-5.1); Protein, Total 7.6 g/dL (6.4-8.2); Sodium Level 137 mEq/L (136-145)
[2023-04-18 01:53] LABS: Bilirubin Direct < 0.1 mg/dL (0-0.2); Bilirubin Indirect, Calculated ND mg/dL (0.2-0.8); Troponin High Sensitivity < 3.0 pg/mL (<58.9)
[2023-04-18] MEDS ORDERED: NA CHLORIDE 0.9% 1,000 ML ONE (02:17)
--- NOTE | 2023-04-18 04:39 | ER ---
Nurse's Notes [facility] Name: Heide Whitaker Age: 33 yrs Sex: Female : 1990 Arrival Date: 04/18/2023 Time: 00:53 Bed 16 Private MD: Diagnosis: Pain in right lower leg;Abdominal tenderness;Obesity, unspecified;Anemia, unspecified Presentation: 04/18 01:13 Chief complaint: Patient states: started having R foot/leg pain and swelling that has jw7 radiated up to abdomen and chest. started in the evening around 1900 on 04/17/23. Pain is intermittent throughout, with cramping in the abdomen and a dull aching to chest that is worse when laying down. Stated "It just doesn't feel right". Coronavirus screen: At this time, the client does not indicate any symptoms associated with coronavirus-19. Ebola Screen: No symptoms or risks identified at this time. Initial Sepsis Screen: Does the patient meet any 2 criteria? No. Patient's initial sepsis screen is negative. Does the patient have a suspected source of infection? No. Patient's initial sepsis screen is negative. Risk Assessment: Do you want to hurt yourself or someone else? Patient reports no desire to harm self or others. Onset of symptoms was April 17, 2023. 01:13 Method Of Arrival: [facility] 01:13 Acuity: MALLORIE 3 jw7 Triage Assessment: 01:19 General: Appears in no apparent distress. obese, Behavior is calm, cooperative. Pain: jw7 Complains of pain in chest, abdomen and right leg. Neuro: Level of Consciousness is awake, alert, obeys commands, Oriented to person, place, time, situation. Cardiovascular: Capillary refill < 3 seconds Patient's skin is warm and dry. Respiratory: Airway is patent Trachea midline Respiratory effort is even, unlabored, Respiratory pattern is regular, symmetrical. GI: Abdomen is round non-distended, obese. 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 - Social history:: Smoking status: Patient denies any tobacco usage or history of. - Family history:: not pertinent. Screenin:24 [facility] ED Fall Risk Assessment (Adult) History of falling in the last 3 months, jw7 including since admission No falls in past 3 months (0 pts) Score/Fall Risk Level 0 - 2 = Low Risk. Abuse screen: Denies threats or abuse. Denies injuries from another. Nutritional screening: No deficits noted. Tuberculosis screening: No symptoms or risk factors identified. Assessment: 02:02 General: See Triage Assessment. jw7 02:03 Reassessment: Patient appears in no apparent distress at this time. Patient and/or jw7 family updated on plan of care and expected duration. Pain level reassessed. Patient is alert, oriented x 3, equal unlabored respirations, skin warm/dry/pink. 03:00 Reassessment: Patient appears in no apparent distress at this time. Patient and/or jw7 family updated on plan of care and expected duration. Pain level reassessed. Patient is alert, oriented x 3, equal unlabored respirations, skin warm/dry/pink. 04:17 Reassessment: Patient appears in no apparent distress at this time. Patient and/or jw7 family updated on plan of care and expected duration. Pain level reassessed. Patient is alert, oriented x 3, equal unlabored respirations, skin warm/dry/pink. Patient states feeling better. Vital Signs: 01:13 BP 147 / 91; Pulse 88; Resp 18 S; Temp 98; Pulse Ox 100% on R/A; Weight 165.56 kg; jw7 Height 5 ft. 8 in. ; Pain 6/10; 01:30 BP 122 / 71; Pulse 90; Resp 15 S; Pulse Ox 100% on R/A; jw7 04:11 BP 117 / 65; Pulse 80; Resp 22; Pulse Ox 97% on R/A; jw7 01:13 Body Mass Index 55.50 (165.56 kg, 172.72 cm) jw7 01:13 Pain Scale: Adult [facility] ED Course: 00:54 Patient arrived in ED. am2 01:01 Trice Ng RN is Primary Nurse. jw7 01:02 Yogesh Thacker MD is Attending Physician. [facility] 01:19 Triage completed. jw7 01:19 Arm band placed on. jw7 01:25 Patient has correct armband on for positive identification. Placed in gown. Bed in low jw7 position. Call light in reach. 01:34 Basic Metabolic Panel Sent. jw7 01:34 CBC with Diff Sent. jw7 01:34 LFT's Sent. jw7 01:34 Magnesium Sent. jw7 01:34 NT PRO-BNP Sent. jw7 01:34 PT-INR Sent. jw7 01:34 Troponin HS Sent. jw7 01:34 D-Dimer Sent. jw7 02:01 Inserted saline lock: 20 gauge in left antecubital area, using aseptic technique. jw7 02:05 XRAY Chest (1 view) In Process Unspecified. EDMS 02:16 Test, Serum Sent. jw7 02:25 US Extremity Venous W Compression Dustin In Process Unspecified. EDMS 03:05 CT Chest For PE Angio In Process Unspecified. EDMS 03:05 CT Abd/Pelvis - IV Contrast Only In Process Unspecified. EDMS 04:11 Troponin High Sensitivity: 4AM Sent. jw7 04:38 Curtis Cosme MD is Referral Physician. [facility] 04:54 No provider procedures requiring assistance completed. IV discontinued, intact, jw7 bleeding controlled, No redness/swelling at site. Pressure dressing applied. 04:55 Provided Education on: discharge instructions. jw7 Administered Medications: 01:33 Drug: Aspirin PO Chewable Tablet 81 mg Route: PO; jw7 02:17 Follow up: Response: No adverse reaction jw7 02:16 Drug: NS 0.9% IV 1000 ml Route: IV; Rate: 125 ml/hr; Site: left antecubital; jw7 04:56 Follow up: Response: No adverse reaction; IV Status: Order to discontinue infusion; IV jw7 Intake: 200ml Medication: 01:24 VIS not applicable for this client. jw7 Intake: 04:56 IV: 200ml; Total: 200ml. jw7 Outcome: 04:38 Discharge ordered by . bambi 04:54 Discharged to home ambulatory. jw7 04:54 Condition: stable 04:54 Discharge instructions given to patient, Instructed on discharge instructions, follow up and referral plans. Demonstrated understanding of instructions, follow-up care. 04:55 Patient left the ED. jw7 Signatures: Dispatcher [employer] Yogesh Bass MD MD cha Moreno, Amanda am2 Trice Ng, RN RN jw7
--- NOTE | 2023-04-18 04:39 | EDPHYS ---
Physician Documentation [facility] Name: Heide Whitaker Age: 33 yrs Sex: Female : 1990 Arrival Date: 04/18/2023 Time: 00:53 Bed 16 Private MD: LETTY Physician Yogesh Thacker HPI: 04/18 01:17 This 33 yrs old Black Female presents to ER via Unassigned with complaints of Leg Pain, bambi Chest Pain, Abdominal Pain, Leg Swelling. 01:17 The patient presents with pain, that is acute. The complaints affect the lateral aspect bambi of right foot, medial aspect of right foot and dorsum of right foot. Context: The problem was sustained at work. Onset: The symptoms/episode began/occurred yesterday. Modifying factors: The symptoms are alleviated by nothing. the symptoms are aggravated by nothing. Associated signs and symptoms: The patient has no apparent associated signs or symptoms. Severity of symptoms: At their worst the symptoms were mild. The patient has not experienced similar symptoms in the past. 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 - Social history:: Smoking status: Patient denies any tobacco usage or history of. - Family history:: not pertinent. ROS: 01:17 Constitutional: Negative for fever, chills, and weight loss, Eyes: Negative for injury, bambi pain, redness, and discharge, ENT: Negative for injury, pain, and discharge, Neck: Negative for injury, pain, and swelling, Cardiovascular: Negative for chest pain, palpitations, and edema, Respiratory: Negative for shortness of breath, cough, wheezing, and pleuritic chest pain, Abdomen/GI: Negative for abdominal pain, nausea, vomiting, diarrhea, and constipation, Back: Negative for injury and pain, : Negative for injury, bleeding, discharge, and swelling, Skin: Negative for injury, rash, and discoloration, Neuro: Negative for headache, weakness, numbness, tingling, and seizure, Psych: Negative for depression, anxiety, suicide ideation, homicidal ideation, and hallucinations, Allergy/Immunology: Negative for hives, rash, and allergies, Endocrine: Negative for neck swelling, polydipsia, polyuria, polyphagia, and marked weight changes. 01:17 MS/extremity: Positive for decreased range of motion, pain, of the right leg. Exam: 01:17 Constitutional: This is a well developed, well nourished patient who is awake, alert, bambi and in no acute distress. Head/Face: Normocephalic, atraumatic. Eyes: Pupils equal round and reactive to light, extra-ocular motions intact. Lids and lashes normal. Conjunctiva and sclera are non-icteric and not injected. Cornea within normal limits. Periorbital areas with no swelling, redness, or edema. ENT: Nares patent. No nasal discharge, no septal abnormalities noted. Tympanic membranes are normal and external auditory canals are clear. Oropharynx with no redness, swelling, or masses, exudates, or evidence of obstruction, uvula midline. Mucous membranes moist. Neck: Trachea midline, no thyromegaly or masses palpated, and no cervical lymphadenopathy. Supple, full range of motion without nuchal rigidity, or vertebral point tenderness. No Meningismus. Chest/axilla: Normal chest wall appearance and motion. Nontender with no deformity. No lesions are appreciated. Cardiovascular: Regular rate and rhythm with a normal S1 and S2. No gallops, murmurs, or rubs. Normal PMI, no JVD. No pulse deficits. Respiratory: Lungs have equal breath sounds bilaterally, clear to auscultation and percussion. No rales, rhonchi or wheezes noted. No increased work of breathing, no retractions or nasal flaring. Abdomen/GI: Soft, non-tender, with normal bowel sounds. No distension or tympany. No guarding or rebound. No evidence of tenderness throughout. Back: No spinal tenderness. No costovertebral tenderness. Full range of motion. Skin: Warm, dry with normal turgor. Normal color with no rashes, no lesions, and no evidence of cellulitis. MS/ Extremity: Pulses equal, no cyanosis. Neurovascular intact. Full, normal range of motion. Neuro: Awake and alert, GCS 15, oriented to person, place, time, and situation. Cranial nerves II-XII grossly intact. Motor strength 5/5 in all extremities. Sensory grossly intact. Cerebellar exam normal. Normal gait. Psych: Awake, alert, with orientation to person, place and time. Behavior, mood, and affect are within normal limits. 01:17 ECG was reviewed by the Attending Physician. 04:37 ECG was reviewed by the Attending Physician. [facility] Vital Signs: 01:13 BP 147 / 91; Pulse 88; Resp 18 S; Temp 98; Pulse Ox 100% on R/A; Weight 165.56 kg; jw7 Height 5 ft. 8 in. ; Pain 6/10; 01:30 BP 122 / 71; Pulse 90; Resp 15 S; Pulse Ox 100% on R/A; jw7 04:11 BP 117 / 65; Pulse 80; Resp 22; Pulse Ox 97% on R/A; [facility] 01:13 Body Mass Index 55.50 (165.56 kg, 172.72 cm) [facility] 01:13 Pain Scale: Adult [facility] MDM: 01:02 Patient medically screened. [facility] 01:19 Differential diagnosis: contusion, abrasion. Data reviewed: vital signs, nurses notes, [facility] lab test result(s), EKG, radiologic studies, doppler, plain films. Consideration of Admission/Observation Escalation of care including admission/observation considered. I considered the following discharge prescriptions or medication management in the emergency department Medications were administered in the Emergency Department. See MAR. Independent interpretation of the following test(s) in the Emergency Department EKG: See my EKG interpretation above. Test considered but Not performed: MRI: no mri chest. Care significantly affected by the following chronic conditions: Obesity. Counseling: I had a detailed discussion with the patient and/or guardian regarding: the historical points, exam findings, and any diagnostic results supporting the discharge/admit diagnosis, lab results, radiology results. 04/18 01:16 Order name: Basic Metabolic Panel; Complete Time: [facility] 04/18 01:16 Order name: CBC with Diff; Complete Time: :46 [facility] 04/18 01:16 Order name: LFT's; Complete Time: 55 [facility] 04/18 01:16 Order name: Magnesium; Complete Time: : [facility] 04/18 01:16 Order name: NT PRO-BNP; Complete Time: [facility] 04/18 01:16 Order name: PT-INR; Complete Time: :46 [facility] 04/18 01:16 Order name: Troponin HS; Complete Time: 01:55 bambi 04/18 01:16 Order name: Lipase; Complete Time: 01:55 bambi 04/18 01:16 Order name: D-Dimer; Complete Time: 01:46 bambi 04/18 01:56 Order name: Troponin High Sensitivity: 4AM 04/18 02:06 Order name: Test, Serum; Complete Time: 03:18 jw7 04/18 01:16 Order name: XRAY Chest (1 view) 04/18 01:16 Order name: US Extremity Venous W Compression Dustin 04/18 01:47 Order name: CT Chest For PE Angio 04/18 01:47 Order name: CT Abd/Pelvis - IV Contrast Only 04/18 01:16 Order name: EKG; Complete Time: 01:18 bambi 04/18 01:58 Order name: EKG; Complete Time: 01:58 04/18 01:16 Order name: Cardiac monitoring; Complete Time: 01:26 04/18 01:16 Order name: EKG - Nurse/Tech; Complete Time: 01:25 04/18 01:16 Order name: IV Saline Lock; Complete Time: 02:01 04/18 01:16 Order name: Labs collected and sent; Complete Time: 01:34 bambi 04/18 01:16 Order name: O2 Per Protocol; Complete Time: 01:26 bambi 04/18 01:16 Order name: O2 Sat Monitoring; Complete Time: 01:26 04/18 01:58 Order name: EKG - Nurse/Tech; Complete Time: 04:11 [facility] EC:17 Rate is 86 beats/min. Rhythm is regular. QRS [place] is Normal. NE interval is normal. QRS bambi interval is normal. QT interval is normal. No Q waves. T waves are Normal. No ST changes noted. Clinical impression: NSR w/ Non-specific ST/T Changes and No evidence of ischemia. Interpreted by me. Reviewed by me. 04:37 Rate is 83 beats/min. Rhythm is regular. QRS [place] is Normal. NE interval is prolonged bambi at 244 msec. QT interval is normal. No Q waves. T waves are Normal. No ST changes noted. Clinical impression: NSR w/ Non-specific ST/T Changes, 1st degree heart block, and No evidence of ischemia. Interpreted by me. Reviewed by me. Administered Medications: 01:33 Drug: Aspirin PO Chewable Tablet 81 mg Route: PO; jw7 02:17 Follow up: Response: No adverse reaction jw7 02:16 Drug: NS 0.9% IV 1000 ml Route: IV; Rate: 125 ml/hr; Site: left antecubital; jw7 04:56 Follow up: Response: No adverse reaction; IV Status: Order to discontinue infusion; IV jw7 Intake: 200ml Disposition Summary: 04/18/23 04:38 Discharge Ordered Location: Home bambi Problem: new bambi Symptoms: have improved bambi Condition: Stable bambi Diagnosis - Pain in right lower leg bambi - Abdominal tenderness bambi - Obesity, unspecified bambi - Anemia, unspecified bambi Followup: bambi - With: Private Physician - When: 2 - 3 days - Reason: Recheck today's complaints, Continuance of care, Re-evaluation by your physician Followup: bambi - With: - When: 2 - 3 days - Reason: Recheck today's complaints, Re-evaluation by your physician Discharge Instructions: - Discharge Summary Sheet bambi - Abdominal Pain, Adult bambi - Anemia bambi - Obesity, Adult bambi - Abdominal Pain, Adult, [id number] bambi - Aspirin and Your Heart bambi - Obesity, Adult, [id number] bambi Forms: - Medication Reconciliation Form bambi - Thank You Letter bambi - Antibiotic Education bambi - Prescription Opioid Use bambi - Patient Portal Instructions bambi Signatures: Dispatcher [employer] Yogesh Bass MD MD cha Waits, Jodi, RN RN jw7
[2023-04-18 05:06] VITALS: TEMP 98
[2023-04-18 05:21] VITALS: BP 117/65; O2SAT 97
--- NOTE | 2023-04-18 15:58 | RAD REPORT ---
EXAM DESCRIPTION: Extrem Venous W Compress Dustin CLINICAL HISTORY: 33 years Female Pain;Swelling COMPARISON: None TECHNIQUE: Spectral analysis and color/grayscale sonographic images of both legs were obtained utili zing a high-frequency linear array transducer supplemented with color Doppler, compression and augmen tation techniques. FINDINGS: Exam limited due to body habitus. Right leg veins: Common femoral: normal Greater saphenous: normal Superficial femoral: normal Popliteal: normal Calf Veins: normal Left leg veins: Common femoral: normal Greater saphenous: normal Superficial femoral: normal Popliteal: normal Calf Veins: normal IMPRESSION: 1. No sonographic evidence for lower extremity deep venous thrombosis in either leg. Electronically signed by: Valeriano Campos MD 04/18/2023 2:46 AM CDT Due to temporary technical issues with the PACS/Fluency reporting system, reports are being signed by the in house radiologists without review as a courtesy to insure prompt reporting. The interpreting radiologist is fully responsible for the content of the report.
--- NOTE | 2023-04-18 16:19 | RAD REPORT ---
EXAM DESCRIPTION: Chest Single View CLINICAL HISTORY: CHEST PAIN COMPARISON: 08/15/2022 FINDINGS: Single frontal radiograph view of the chest. Cardiomediastinal silhouette: Normal size and contour. Leads overlie the chest. Lungs: No consolidation, pneumothorax, or pleural effusion. Bones: No acute osseous abnormality. Upper abdomen: No abnormality identified. IMPRESSION: 1. No acute pulmonary process identified. Electronically signed by: Daniel Thompson 04/18/2023 2:16 AM CDT Due to temporary technical issues with the PACS/Fluency reporting system, reports are being signed by the in house radiologists without review as a courtesy to insure prompt reporting. The interpreting radiologist is fully responsible for the content of the report.
--- NOTE | 2023-04-18 16:37 | RAD REPORT ---
EXAM DESCRIPTION: 1. CTA of the chest with contrast. 2. CT of the abdomen and pelvis with contrast. CLINICAL HISTORY: Dyspnea;PE;Pain COMPARISON: 08/15/2022 TECHNIQUE: CTA of the chest obtained following IV administration of iodinated contrast. 3-D/MIP refo rmatted images available. CT of the abdomen and pelvis was then performed in the portal venous phase This exam was performed according to our departmental dose-optimization program, which includes autom ated exposure control, adjustment of the mA and/or kV according to patient size and/or use of iterati ve reconstruction technique. FINDINGS: Chest: Pulmonary arteries: Suboptimal contrast bolus timing. No central filling defects. Thyroid: No abnormalities of the visualized thyroid. Great Vessels: Great vessels have normal anatomic configuration. Thoracic Aorta: No abnormalities of the thoracic aorta identified. Heart: No cardiomegaly, significant pericardial effusion, or coronary artery atherosclerosis Lymph Nodes: No enlarged mediastinal lymph nodes identified. Esophagus: No abnormalities of the esophagus identified. Other: No additional findings. Lungs: No airspace opacities identified. Pleura: No pleural effusion or pneumothorax. Trachea/Airways: No abnormalities of the visualized trachea or airways. Abdomen: Liver: The liver has normal size and decreased density. No intrahepatic mass or biliary dilatation. Gallbladder: Prior cholecystectomy. Spleen, Pancreas, and Adrenal Glands: The spleen, pancreas, and adrenal glands are unremarkable. Kidneys: The kidneys have normal size without evidence of solid mass or hydronephrosis. Vasculature: The aorta and IVC have normal caliber and position. The portal vein is patent. The pro ximal visceral and renal arteries are patent. Stomach: The stomach and duodenum have normal course. Other: No free intraperitoneal air. No free fluid or lymphadenopathy. Fat-containing umbilical he rnia. Pelvis: Bladder: Urinary bladder is unremarkable. Bowel: No dilated loops of large or small bowel. Appendix: Prior appendectomy. Pelvis: Uterus is not enlarged. Bones: No destructive bone lesions identified. IMPRESSION: 1. No central filling defects to suggest pulmonary embolus. Suboptimal contrast bolus timing. 2. No acute inflammatory or obstructive process identified. 3. Hepatic steatosis. Electronically signed by: Daniel Thompson 04/18/2023 3:34 AM CDT Due to temporary technical issues with the PACS/Fluency reporting system, reports are being signed by the in house radiologists without review as a courtesy to insure prompt reporting. The interpreting radiologist is fully responsible for the content of the report.
--- NOTE | 2023-04-21 13:14 | EKG ---
Test Date: 2023-04-18 Test Time: 04:05:29 Visual Basic Programmer: KRYSTEN MEASUREMENT RESULTS: Intervals: Rate: 83 OH: 244 QRSD: 94 QT: 372 QTc: 437 [place]: P: 58 OH: 244 QRS: -1 T: 38 INTERPRETIVE STATEMENTS: Sinus rhythm with 1st degree AV block Otherwise normal ECG Compared to ECG 02/22/2023 23:58:48 No significant changes Electronically Signed On 04-21-23 13:09:40 CDT by Curtis Cosme
--- NOTE | 2023-04-21 13:14 | EKG ---
Test Date: 2023-04-18 Test Time: 01:06:06 Environmental Services Assistant: KRYSTEN MEASUREMENT RESULTS: Intervals: Rate: 86 SC: 246 QRSD: 88 QT: 360 QTc: 430 [place]: P: 62 SC: 246 QRS: 3 T: 41 INTERPRETIVE STATEMENTS: Sinus rhythm with 1st degree AV block Otherwise normal ECG Compared to ECG 02/22/2023 23:58:48 No significant changes Electronically Signed On 04-21-23 13:09:43 CDT by Curtis Cosme
== END 2023-04-18 04:55 | disposition home or self-care (01) ==
LOC: ER 00:53
DX: M79.661 Pain in right lower leg (principal); R10.819 Abdominal tenderness, unspecified site; D64.9 Anemia, unspecified; E66.9 Obesity, unspecified; Z68.43 Body mass index [BMI] 50.0-59.9, adult
CPT/HCPCS: 96361; 93005 ×2; 85025; 80048; 36415; 83735; 84703; 85610; 85379; 80076; 84484 ×2; 83690; 83880; 71275; 74177; 71045; 93970; 96360; 99284; Q9967; J7030

== ENCOUNTER 2024-08-22 12:46 | Emergency (ER) | payer OTHER, SELFPAY ==
[2024-08-22] MEDS ORDERED: ONDANSETRON 4 MG/2 ML VIAL ONE (17:01)
[2024-08-22] MEDS ORDERED: MORPHINE 4 MG/ML SYR ONE ×2 (17:01→18:31)
[2024-08-22 17:09] LABS: Absolute Basophils 0.1 K/uL (0-0.5); Absolute Eosinophils 0.2 K/uL (0-0.5); Absolute Lymphocytes (CBC) 2.3 K/uL (0.7-4.9); Absolute Monocytes 0.9 K/uL (0.1-1.3); Absolute Neutrophil 14.9 K/uL (1.8-8.0); Basophils % 0.6 % (0-1.3); Eosinophils % 1.1 % (0-4.4); Hematocrit 35.7 % (36.0-45.0); Hemoglobin 10.7 g/dL (12.0-15.0); Lymphocytes % 12.3 % (15.3-44.8); MCH 20.9 pg (27.0-35.0); MCHC 30.1 g/dL (32.0-36.0); MCV 69.4 fL (80-100); MPV 8.8 fL (7.6-11.3); Monocytes % 5.1 % (3.3-12.3); Neutrophils % 80.9 % (41.7-73.7); Platelets 304 thou/uL (152-406); RBC Red Blood Cell Count 5.14 M/uL (3.86-4.86); Red Cell Distribution Width 17.1 % (12.1-15.2)
[2024-08-22 17:11] LABS: Blood Morphology Comment NOTED (NOT SEEN); Hypochromasia 1+; Microcytosis 1+; Platelet Estimate ADEQ; White Blood Cell Scan OK (OK)
[2024-08-22 17:32] LABS: Albumin 3.5 g/dL (3.4-5.0); Albumin/Globulin Ratio 0.7 (1.1-1.8); Alkaline Phosphatase 78 U/L (45-117); Anion Gap 8.2 mEq/L (5.0-15.0); BUN Blood Urea Nitrogen 7 mg/dL (7-18); Bicarbonate 28 mEq/L (21-32); Bilirubin Total 0.7 mg/dL (0.2-1.0); Globulin 5.2 g/dL (2.3-3.5); Glomerular Filtration Rate 100 ml/min (=/>90); Glucose Level 93 mg/dL (74-106); Lipase 26 U/L (13-75); Protein, Total 8.7 g/dL (6.4-8.2); Sodium Level 136 mEq/L (136-145)
[2024-08-22 17:33] LABS: ALT/SGPT < 14 U/L (13-56); AST/SGOT 21 U/L (15-37); Potassium 4.2 mEq/L (3.5-5.1)
[2024-08-22 17:50] LABS: Specific Gravity 1.013 (1.005-1.030)
[2024-08-22 17:57] LABS: Specific Gravity 1.013 (1.005-1.030); Sqamous Epithelial <5 /HPF (None Seen); Urine Bacteria <20 /HPF (<20); Urine Bilirubin NEGATIVE (Negative); Urine Blood 3+ (OVER) (Negative); Urine Clarity Extremely Turbid (Clear); Urine Color Light-Orange (Yellow); Urine Culture Reflex Order REFLEXED; Urine Glucose NEGATIVE (Negative); Urine Ketones NEGATIVE (Negative); Urine Microscopic Reflex YN ORDER UMIC; Urine Mucus Slight /HPF (None Seen); Urine Nitrite NEGATIVE (Negative); Urine Protein 1+ (Negative); Urine RBC >50 /HPF (None Seen); Urine Urobilinogen Normal (Normal); Urine WBC 20-50 /HPF (<5)
[2024-08-22] MEDS ORDERED: BUPIVACAINE 0.5% PF 10 ML VIAL ONE (18:31)
[2024-08-22] MEDS ORDERED: CLINDAMYCIN 900MG/D5W 900 MG/50 ML IVPB IV ONE (18:31)
[2024-08-22] MEDS ORDERED: LIDOCAINE 1% MPF 5 ML VIAL ONE (18:31)
--- NOTE | 2024-08-22 18:57 | EDPHYS ---
Physician Documentation [facility] Name: Heide Whitaker Age: 34 yrs Sex: Female : 1990 Arrival Date: 08/22/2024 Time: 12:46 Bed 11 Private MD: ED Physician Kirti Mabry HPI: 08/22 14:30 This 34 yrs old Black Female presents to ER via Ambulatory with complaints of Vaginal cp Pain - Swelling. 14:30 The patient presents with pelvic pain, vaginal area, vaginal bleeding that is. cp 14:30 Onset: The symptoms/episode began/occurred 2 day(s) ago. cp 14:30 Associated signs and symptoms: Pertinent positives: vaginal bleeding, Pertinent cp negatives: fever, abdominal pain. Severity of symptoms: in the emergency department the symptoms are unchanged, despite home interventions. 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 - Infectious Disease History:: Denies. - Social history:: Smoking status: Patient denies any tobacco usage or history of. ROS: 14:30 Constitutional: Negative for body aches, chills, fever, poor PO intake, cp 14:30 Eyes: Negative for injury, pain, redness, and discharge, cp 14:30 Abdomen/GI: Negative for abdominal pain, vomiting, diarrhea, constipation, 14:30 : Positive for pelvic pain, vaginal bleeding, 14:30 All other systems are negative, Exam: 14:35 Constitutional: The patient appears in no acute distress, alert, awake, non-toxic, well cp developed, well nourished, obese, uncomfortable, 14:35 Head/Face: Normocephalic, atraumatic. cp 14:35 Eyes: Periorbital structures: appear normal, Conjunctiva: normal, no exudate, no injection, Sclera: no appreciated abnormality, Lids and lashes: appear normal, bilaterally, 14:35 ENT: External ear(s): are unremarkable, Nose: is normal, Posterior pharynx: Airway: no evidence of obstruction, patent, 14:35 Chest/axilla: Inspection: normal, 14:35 Cardiovascular: Rate: normal, Rhythm: regular, 14:35 Respiratory: the patient does not display signs of respiratory distress, Respirations: normal, no use of accessory muscles, Breath sounds: are clear throughout, no decreased breath sounds, no stridor, no wheezing, 14:35 Abdomen/GI: Inspection: obese Palpation: abdomen is soft and non-tender, in all quadrants, 17:45 : Pelvic Exam: External exam: Bartholin's cyst present, right upper inner labia with cp moderate swelling, marked tenderness, discharge, bloody, the nurse was present for the exam, Vital Signs: 13:32 BP 139 / 107; Pulse 90; Resp 18 S; Temp 98.6(O); Pulse Ox 99% on R/A; Weight 172.37 kg aa5 (R); Height 5 ft. 8 in. (R); 19:22 BP 135 / 99; Pulse 85; Resp 19 S; Pulse Ox 100% on R/A; kc6 13:32 Body Mass Index 57.78 (172.37 kg, 172.72 cm) aa5 Procedures: 19:00 I \T\ D: Incision and drainage was performed for an abscess of the Bartholin's gland. cp Prepped with Betadine, Anesthetized with 5 ml's 1% Lidocaine. Incised with #11 blade. Drained moderate amount purulent fluid. Dressing: sterile 4x4 gauze, the patient tolerated the procedure well. MDM: 13:26 Medical Screening Exam initiated cp 18:56 Data reviewed: vital signs, nurses notes, lab test result(s), and as a result, I will cp discharge patient. 18:56 Differential diagnosis: urinary tract infection, vaginosis. cp 08/22 14:25 Order name: CBC with Diff; Complete Time: 17:48 cp 08/22 14:25 Order name: CMP; Complete Time: 17:48 cp 08/22 14:25 Order name: Lipase; Complete Time: 17:48 cp 08/22 14:25 Order name: Test, Urine; Complete Time: 18:10 cp 08/22 14:25 Order name: Urinalysis w/ reflexes; Complete Time: 18:10 cp 08/22 17:12 Order name: CBC Smear Scan; Complete Time: 17:48 EDMS 1208 18:00 Order name: Urine Culture EDPA 08/22 14:25 Order name: IV Saline Lock; Complete Time: 17:03 cp 08/22 14:25 Order name: Labs collected and sent; Complete Time: 17:03 cp 08/22 16:52 Order name: Pelvic Exam Setup; Complete Time: 17:52 cp 08/22 18:12 Order name: I\T\D Setup; Complete Time: 18:27 cp Administered Medications: 17:09 Drug: morphine IVP or IV 4 mg IVP once over 4 mins Route: IVP; Infused Over: 4 mins; hb Site: left antecubital; 18:09 Follow up: Response: No adverse reaction; Pain is decreased; RASS: Alert and Calm (0) kc6 17:09 Drug: Ondansetron IVP 4 mg IVP once; over 2 minutes Route: IVP; Site: left antecubital; hb 18:09 Follow up: Response: No adverse reaction kc6 18:40 Drug: Bupivacaine Infiltration (0.5 %) 10 ml 10 ml Infiltration once Volume: 10 ml; kc6 Route: Infiltration; 19:03 Follow up: Response: No adverse reaction; Pain is decreased kc6 18:40 Drug: Lidocaine Infiltration (1 %) 10 ml 5 ml Infiltration once; to bedside Volume: 5 kc6 ml; Route: Infiltration; 19:03 Follow up: Response: No adverse reaction; Pain is decreased kc6 18:40 Drug: morphine IVP or IV 4 mg IVP once over 4 mins Route: IVP; Infused Over: 4 mins; kc6 Site: left antecubital; 19:02 Follow up: Response: No adverse reaction; Pain is decreased; RASS: Alert and Calm (0) kc6 18:40 Drug: Clindamycin IVPB 900 mg IVPB once over 30 mins; (mix in 50 mL) Route: IVPB; kc6 Infused Over: 30 mins; Site: left antecubital; 19:09 Follow up: Response: No adverse reaction; IV Status: Completed infusion; IV Intake: [id number] 19:09 Drug: metroNIDAZOLE PO 500 mg PO once Route: PO; kc6 19:22 Follow up: Response: No adverse reaction kc6 19:09 Drug: HYDROcodone-acetaminophen PO 10 mg-325 mg 1 tabs PO once Route: PO; kc6 19:22 Follow up: Response: No adverse reaction; Pain is decreased; RASS: Alert and Calm (0) kc6 Disposition Summary: 08/22/24 18:57 Discharge Ordered Notes: Location: Home cp Problem: new cp Symptoms: have improved cp Condition: Stable cp Diagnosis - Abscess of Bartholin's gland cp Followup: cp - With: Private Physician - When: 2 - 3 days - Reason: Recheck today's complaints Discharge Instructions: - Discharge Summary Sheet cp - Skin Abscess cp - Bartholin's Cyst cp - Incision and Drainage cp Forms: - Medication Reconciliation Form cp - Antibiotic Education cp - Prescription Opioid Use cp - Patient Portal Instructions cp - Leadership Thank You Letter cp - Work release form kc6 Prescriptions: - acetaminophen-codeine 300-30 mg Oral tablet - take 2 tablet ORAL route every 8 hours as needed for pain; 16 tablet; Refills: cp 0, Product Selection Permitted - Anaprox DS 550 mg Oral Tablet - take 1 tablet ORAL route every 12 hours As needed; 20 tablet; Refills: 0, cp Product Selection Permitted - Clindamycin HCl 300 mg Oral Capsule - take 1 capsule ORAL route every 6 hours for 10 days; 40 capsule; Refills: 0, cp Product Selection Permitted - Metronidazole 500 mg Oral Tablet - take 1 tablet ORAL route every 8 hours; 30 tablet; Refills: 0, Product cp Selection Permitted Signatures: Dispatcher [employer] Viki Ruiz, RN RN aa5 Yogesh Lema PA PA cp Sherin Smith RN RN Crista Orellana RN RN kc6 Corrections: (The following items were deleted from the chart) 14:25 14:25 CBC+H.LAB.BRZ ordered. EDMS EDMS 14:25 14:25 COMPREHENSIVE METABOLIC PANEL+C.LAB.BRZ ordered. EDMS EDMS 14:25 14:25 LIPASE+C.LAB.BRZ ordered. EDMS EDMS 14:25 14:25 Test, Urine+UC.LAB.BRZ ordered. EDMS EDMS 14:25 14:25 Urinalysis+U.LAB.BRZ ordered. EDMS EDMS
--- NOTE | 2024-08-22 18:57 | ER ---
Nurse's Notes [facility] Name: Heide Whitaker Age: 34 yrs Sex: Female : 1990 Arrival Date: 08/22/2024 Time: 12:46 Bed 11 Private MD: Diagnosis: Abscess of Bartholin's gland Presentation: 08/22 13:32 Chief complaint: Patient states: vaginal swelling and pain that began Friday, pt denies aa5 any vaginal discharge. Pt denies urinary symptoms. Coronavirus screen: At this time, the client does not indicate any symptoms associated with coronavirus-19. Ebola Screen: Patient denies travel to an Ebola-affected area in the 21 days before illness onset. Initial Sepsis Screen: Does the patient meet any 2 criteria? No. Patient's initial sepsis screen is negative. Does the patient have a suspected source of infection? No. Patient's initial sepsis screen is negative. Risk Assessment: Do you want to hurt yourself or someone else? Patient reports no desire to harm self or others. Onset of symptoms was August 2024. 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 - Infectious Disease History:: Denies. - Social history:: Smoking status: Patient denies any tobacco usage or history of. Screenin:11 [facility] ED Fall Risk Assessment (Adult) History of falling in the last 3 months, kc6 including since admission No falls in past 3 months (0 pts) Confusion or Disorientation No (0 pts) Intoxicated or Sedated No (0 pts) Impaired Gait No (0 pts) Mobility Assist Device Used No (0 pt) Altered Elimination No (0 pt) Score/Fall Risk Level 0 - 2 = Low Risk Oriented to surroundings, Maintained a safe environment. Abuse screen: Denies threats or abuse. Denies injuries from another. Nutritional screening: No deficits noted. Tuberculosis screening: No symptoms or risk factors identified. Assessment: 18:11 General: Appears in no apparent distress. uncomfortable, obese, well groomed, well kc6 developed, Behavior is calm, cooperative, appropriate for age. Pain: Complains of pain in pelvis. Neuro: Level of Consciousness is awake, alert, obeys commands, Oriented to person, place, time, situation, Appropriate for age. Cardiovascular: Capillary refill < 3 seconds. Respiratory: Airway is patent Trachea midline Respiratory effort is even, unlabored, Respiratory pattern is regular, symmetrical. GI: No signs and/or symptoms were reported involving the gastrointestinal system. : Reports vaginal bleeding that is bright red, heavy flow. EENT: No signs and/or symptoms were reported regarding the EENT system. Derm: No signs and/or symptoms reported regarding the dermatologic system. Skin is healthy with good turgor, Skin is dry, Skin is normal, Skin temperature is warm cyst located to the right labia. Musculoskeletal: Circulation, motion, and sensation intact. Capillary refill < 3 seconds, Range of motion: intact in all extremities, Swelling present in groin. 19:22 Reassessment: Patient appears in no apparent distress at this time. No changes from kc6 previously documented assessment. Patient and/or family updated on plan of care and expected duration. Pain level reassessed. Patient is alert, oriented x 3, equal unlabored respirations, skin warm/dry/pink. Patient states feeling better. Patient states symptoms have improved. Vital Signs: 13:32 BP 139 / 107; Pulse 90; Resp 18 S; Temp 98.6(O); Pulse Ox 99% on R/A; Weight 172.37 kg aa5 (R); Height 5 ft. 8 in. (R); 19:22 BP 135 / 99; Pulse 85; Resp 19 S; Pulse Ox 100% on R/A; kc6 13:32 Body Mass Index 57.78 (172.37 kg, 172.72 cm) aa5 ED Course: 12:49 Patient arrived in ED. ra3 13:26 Yogesh Lema PA is PHCP. cp 13:26 Kirti Mabry MD is Attending Physician. cp 13:30 Patient has correct armband on for positive identification. Placed in gown. Bed in low kc6 position. Call light in reach. Side rails up X2. Pulse ox on. NIBP on. Door closed. Noise minimized. Lights dimmed. Warm blanket given. Pillow given. 13:32 Arm band placed on. aa5 13:33 Triage completed. aa5 17:01 Inserted saline lock: 20 gauge in left antecubital area, using aseptic technique. hb ,using aseptic technique. US GUIDED Blood collected. Flushed with 10 mL NS. 17:40 Crista Orellana RN is Primary Nurse. kc6 18:10 Assist provider with pelvic exam: Set up pelvic tray. Performed by Yogesh SCHWARTZ kc6 Patient tolerated well. 18:40 Assist provider with I \T\ D: of an abscess on right Bartholin's gland Set up I\T\D tray. agapito 6 Performed by Yogesh SCHWARTZ Patient tolerated well. 19:23 IV discontinued, intact, bleeding controlled, No redness/swelling at site. Pressure kc6 dressing applied. Administered Medications: 17:09 Drug: morphine IVP or IV 4 mg IVP once over 4 mins Route: IVP; Infused Over: 4 mins; hb Site: left antecubital; 18:09 Follow up: Response: No adverse reaction; Pain is decreased; RASS: Alert and Calm (0) kc6 17:09 Drug: Ondansetron IVP 4 mg IVP once; over 2 minutes Route: IVP; Site: left antecubital; hb 18:09 Follow up: Response: No adverse reaction kc6 18:40 Drug: Bupivacaine Infiltration (0.5 %) 10 ml 10 ml Infiltration once Volume: 10 ml; kc6 Route: Infiltration; 19:03 Follow up: Response: No adverse reaction; Pain is decreased kc6 18:40 Drug: Lidocaine Infiltration (1 %) 10 ml 5 ml Infiltration once; to bedside Volume: 5 kc6 ml; Route: Infiltration; 19:03 Follow up: Response: No adverse reaction; Pain is decreased kc6 18:40 Drug: morphine IVP or IV 4 mg IVP once over 4 mins Route: IVP; Infused Over: 4 mins; kc6 Site: left antecubital; 19:02 Follow up: Response: No adverse reaction; Pain is decreased; RASS: Alert and Calm (0) kc6 18:40 Drug: Clindamycin IVPB 900 mg IVPB once over 30 mins; (mix in 50 mL) Route: IVPB; kc6 Infused Over: 30 mins; Site: left antecubital; 19:09 Follow up: Response: No adverse reaction; IV Status: Completed infusion; IV Intake: [id number] 19:09 Drug: metroNIDAZOLE PO 500 mg PO once Route: PO; kc6 19:22 Follow up: Response: No adverse reaction kc6 19:09 Drug: HYDROcodone-acetaminophen PO 10 mg-325 mg 1 tabs PO once Route: PO; kc6 19:22 Follow up: Response: No adverse reaction; Pain is decreased; RASS: Alert and Calm (0) kc6 Medication: 19:23 VIS not applicable for this client. kc6 Intake: 19:09 IV: 50ml; Total: 50ml. kc6 Outcome: 18:57 Discharge ordered by MD. cp 19:22 Discharged to home ambulatory, with family, [facility] 19: Condition: good 19:22 Discharge instructions given to patient, Instructed on discharge instructions, no drinking with medication, no driving heavy equipment, medication usage, wound care, Demonstrated understanding of instructions, follow-up care, medications, wound care, Prescriptions given X 4, 19:23 Patient left the ED. [facility] Signatures: Viki Nails, RN RN aa5 Yogesh Lema PA PA cp Sherin Smith, SEAMUS RN Crista Orellana RN RN kc6 Lea Eduardo ra3 Corrections: (The following items were deleted from the chart) 13:35 13:32 BP 139 / 107; Pulse 90bpm; Resp 18bpm; Spontaneous; Pulse Ox 99% RA; 172.37 kg aa5 Reported; Height 5 ft. 8 in. Reported; BMI: 57.7; aa5
[2024-08-22] MEDS ORDERED: metroNIDAZOLE 500 MG TABLET ONE (19:07)
[2024-08-22] MEDS ORDERED: HYDROCODONE/APAP 10/325 TAB ONE (19:07)
[2024-08-22 22:34] VITALS: TEMP 98.6
[2024-08-22 22:40] VITALS: BP 135/99; O2SAT 100
== END 2024-08-22 19:23 | disposition home or self-care (01) ==
LOC: ER 12:46
PROC: 0U9LXZZ Drainage of Vestibular Gland, External Approach (ICD-10-PCS; principal; 2024-08-22)
DX: N75.1 Abscess of Bartholin's gland (principal)
CPT/HCPCS: 10060; 36415; 80053; 81001; 81025; 83690; 85025; 87086; 87088; 96365; 96375; 99285; J2003; J2405